=== PATIENT | male | born 1940 | race Caucasian/White ===

== ENCOUNTER 2025-01-09 08:27 | Emergency (ER) | payer MEDICARE, OTHER ==
[2025-01-09] MEDS ORDERED: Tranexamic Acid 1,000 MG in Sodium Chloride 0.9% 50 ML IV ONE (10:17)
[2025-01-09] MEDS: Tranexamic Acid in NACL,ISO-OS 1,000 MG in Premix Bag 1 BAG IV ONE (10:43)
== END 2025-01-09 11:00 | disposition home or self-care (01) ==
LOC: FB.ED 08:27
DX: R04.0 Epistaxis (principal)
CPT/HCPCS: 30901; 96374; 99283-25